=== PATIENT | female | born 1930 | race Caucasian/White ===

== ENCOUNTER 2016-08-30 15:46 | Inpatient (IN) | payer MEDICARE, OTHER ==
[~2016-08-30] VITALS: Ht 177.8 cm; Wt 57.2 kg
[~2016-08-30 15:46] MED LIST: tylenol arthritis PO
[2016-08-30 15:58] VITALS: BP 209/92; PULSE 92; RESP 28; O2SAT 88
[2016-08-30 16:21] VITALS: BP 180/68; PULSE 72; RESP 25; O2SAT 94
--- NOTE | 2016-08-30 16:39 | ED.REPORT ---
HPI-General Illness Date of Service Aug 30, 2016 ED Provider: The patient is an 85 year old female who was brought to the emergency department by EMS from [facility] for = shortness of breath and hoarse low voice. Medics report her O2 sat was in the low 80's. Medics mentioned that there may have been concern for a possible allergic reaction. The patient denies throat tightness, throat swelling, difficulty swallowing, tongue swelling , or rash. History is somewhat difficult to obtain. ED nurse contacted the [facility] who were unable to provide much more information. The patient has not been taking her medications as prescribed. Nursing staff called the patients new PCP, Dr. Dumont who recommended evaluation in the emergency department. Nursing Notes Stated Complaint: MEDICATION REACTION Chief Complaint: General Complaint Nursing Notes Reviewed: Yes Allergies: Coded Allergies: ibuprofen (Verified Allergy, Intermediate, legs swelling, 08/30/16) meloxicam (Verified Allergy, Intermediate, legs swelling, 08/30/16) naproxen sodium (Verified Allergy, Intermediate, legs swelling, 08/30/16) Scheduled Amlodipine (Amlodipine) 2.5 Mg Tablet 2.5 MG PO DAILY Furosemide (Furosemide) 20 Mg Tab 20 MG PO DAILY Scheduled PRN Acetaminophen (Extra Strength Non-Aspirin) 500 Mg Tablet 500 MG PO TID PRN PRN For Pain Tramadol (Tramadol) 50 Mg Tablet 50 MG PO QID PRN PRN For Pain Miscellaneous Medications ([stool]) Aspirin (Aspirin) 325 Mg Tablet 325 MG PO Cholecalciferol (Vitamin D3) (Vitamin D3) 2,000 Unit Capsule 2,000 UNIT PO General Time Seen by MD: 16:38 Chief Complaint Other (medication reaction) Hx Obtained From: Patient, EMS Arrived By: Ambulance Sudden in Onset?: Yes Onset Occurred: 2 days ago Symptom Duration: Since onset Severity: Current: No pain currently Severity: Maximum: No pain Recent Healthcare: No recent doctor visit, No recent hospitalization Similar Sx Previous: No Past Medical History Past Medical History Chronic low back pain Severe hip osteoarthritis Hypertension Past Surgical History Tonsillectomy Hemorrhoidectomy Knee replacement Family History Noncontributory Smoking History Current Every Day Smoker Social History Lives at [facility] Drug Use: Denies drug use Other Social History: Local resident Ambulatory Status Independent Review of Systems +hoarse voice Full Review of Systems Ears / Nose / Throat: Denies: Throat pain, Throat swelling, Tongue pain, Tongue swelling Respiratory: Reports: Shortness of breath GI: Denies: Dysphagia Complete sys rev & neg: except as marked. Physical Exam Vital Signs Vital Signs Date Time Temp Pulse Resp B/P Pulse Ox O2 Delivery O2 Flow Rate FiO2 08/30/16 18:20 79 22 179/80 99 Nasal Cannula 08/30/16 16:21 72 25 180/68 94 Nasal Cannula 2 08/30/16 15:58 36.5 92 28 209/92 88 Room Air Initial VS: Reviewed Head / Eyes: Atraumatic, Normocephalic, PERRL Neck: Supple, Non-tender, Full range of motion Cardiovascular: Regular rate & rhythm, Heart sounds normal, Intact distal pulses Abdomen / GI: Soft, Non-tender, No guarding, No rebound, No distention Lymphatic: No lymphadenopathy Extremities: Vascular intact, Neuro intact, No swelling, No tenderness Neurologic: Alert, Oriented, Nonfocal Psychiatric: Mood/affect normal, Behavior normal, Normal thought content General/Constitutional: Awake, Alert, Cooperative Thin and frail, hoarse voice, no signs of allergic reaction ENT: Atraumatic, Airway patent, Mucous membranes moist, Pharynx NL Respiratory / Chest: Atraumatic, Breath sounds NL, Breath sounds = bilat, No respiratory distress, No rales, No rhonchi, No wheezing, No retractions, No stridor, No chest tenderness, No chest wall deformity Hoarse voice Lower Extremity / Pelvis / MS: Neurologic intact 2+ lower extremity edema, more prominent in the right leg. Skin: Atraumatic, Color NL, No rash, Warm, Dry Interpretation & Diagnostics Lab Results Interpretation Result Diagram: 08/30/16 1615 08/30/16 2210 Test 08/30/16 16:15 White Blood Count 4.7th/mm3 (3.8-10.1) Red Blood Count 4.10mil/mm3 (3.90-5.20) Hemoglobin 11.8g/dL (12.0-15.6) Hematocrit 36.0% (35.0-46.0) Mean Corpuscular Volume 87.8fL (81-100) Mean Corpuscular Hemoglobin 28.8pg (27.0-35.0) Mean Corpuscular Hemoglobin Concent 32.8% (32.0-37.0) Red Cell Distribution Width 16.0% (12.3-15.4) Platelet Count 201bil/L (150-400) Neutrophils (%) (Auto) 58% (40-74) Lymphocytes (%) (Auto) 36% (14-46) Monocytes (%) (Auto) 6% (4-12) Eosinophils (%) (Auto) 0% (0-5) Basophils (%) (Auto) 0% (0-3) Hold Purple Top Tube Received (Received) Hold Blue Top Tube Received (Received) Total Bilirubin 0.4mg/dL (0.0-1.2) Aspartate Amino Transf (AST/SGOT) 17U/L (0-50) Alanine Aminotransferase (ALT/SGPT) 8U/L (0-32) Alkaline Phosphatase 77U/L (25-165) Pro-B-Type Natriuretic Peptide 1638pg/mL (0-738) Total Protein 8.2g/dL (6.4-8.4) Hold Red Top Tube Received (Received) Hold Preston Top Tube Received (Received) ECG Interpretation ECG Interpretation: Sinus rhythm First degree AV block Anterior Q waves which are old Lateral ST depressions which were not present on prior EKG Time: 17:51 Interpreted by: ED physician X-Ray Chest Interpretation Chest Xray Interpretation: IMPRESSION: Acute disease is not seen in the chest. Prominent central pulmonary arteries suggesting hypertension. Dictated by: Jonathan Shukla M.D. on 08/30/2016 at 18:19 Interpretation / Wet Read by: Interpret - Radiologist X-Ray Interpretation Xray Interpretation: IMPRESSION: Acute disease is not appreciated. Cause of hoarseness is not identified. Dictated by: Jonathan Shukla M.D. on 08/30/2016 at 18:20 Study Performed: Soft tissue neck Interpretation / Wet Read by: Interpret - Radiologist Re-Eval/Medical Decision Med Decision/Clinical Course Hypoxia likely related to congestive heart failure. Patient has profound hypokalemia and hypomagnesemia as well which were repleted in the ER. CT chest obtained exclude pulmonary embolism given right greater than left lower extremity edema which was negative for pulmonary embolism or acute pneumonia however concerning for possible lymphoma. This will need further workup either in hospital or as an outpatient. Source of Hx: Old records, EMS Consultation : Referral / Consult Name: Mike Shultz MD Consulted With: Hospitalist Requested Call at: 18:23 Call Returned at: 18:37 Drop Hammer Operator Helper: Will see patient, Agrees with eval, Agrees with plan, Accepts admit Counseled Regarding: Diagnosis, Lab results, Need for admission Discharge & Departure Primary Impression: Hypoxia Additional Impressions: Hypokalemia Lower extremity edema Laterality: bilateral Qualified Code: R60.0 - Localized edema Shortness of breath Disposition: ADMITTED TO HOSPITAL Discharge Condition All VS Reviewed: Yes Condition: Stable Referrals: Torey Dumont MD (PCP) Scribe Attestation Portions of this note were transcribed by Porsha Medina. Dr. Azael Alves personally performed the history, physical exam and medical decision-making; I reviewed and confirmed the accuracy of the information in the transcribed note. Signed by: Gus Delgadillo, 08/30/2016 and 1840. copies to: Torey Dumont MD,Leon Ambriz DO Aug 30, 2016 16:39 Porsha Medina Aug 30, 2016 16:46 Hypoxia Additional Impressions: Hypokalemia Lower extremity edema Laterality: bilateral Qualified Code: R60.0 - Localized edema Shortness of breath Disposition: ADMITTED TO HOSPITAL Discharge Condition All VS Reviewed: Yes Condition: Stable Referrals: Torey Dumont MD (PCP) Scribe Attestation Portions of this note were transcribed by Porsha Medina. Dr. Azael Alves personally performed the history, physical exam and medical decision-making; I reviewed and confirmed the accuracy of the information in the transcribed note. Signed by: Gus Delgadillo, 08/30/2016 and 1840. copies to: Torey Dumont MD,Leon S Aug 30, 2016 16:39 Porsha Medina Aug 30, 2016 16:46
[2016-08-30 17:07] LABS: Mean Corpuscular Hemoglobin 28.8 pg (27.0-35.0); Mean Corpuscular Volume 87.8 fL (81-100); Platelet Count 201 bil/L (150-400)
[2016-08-30 17:23] LABS: Magnesium 1.4 mg/dL (1.6-2.6)
[2016-08-30 17:28] LABS: BASOPHILS % (AUTO) 0 % (0-3); EOSINOPHILS % (AUTO) 0 % (0-5); MONOCYTES % (AUTO) 6 % (4-12); NEUTROPHILS % (AUTO) 58 % (40-74)
[2016-08-30] MEDS ORDERED: Potassium Chloride 20 mEq SR Tablet PO ONE (17:45)
[2016-08-30] MEDS ORDERED: KCl 40 mEq/D5W 500 mL 40 MEQ in IV Premix 1 EACH IV ONE (17:45)
[2016-08-30] MEDS ORDERED: Magnesium Sulf 4 Gm/100 mL H2O 4 GM in IV Premix 1 EACH IV ONE (17:45)
[2016-08-30 18:20] VITALS: BP 179/80; PULSE 79; RESP 22; O2SAT 99
--- NOTE | 2016-08-30 18:20 | DRSVH ---
PROCEDURE: X-RAY CHEST, TWO VIEWS ([id number]) INDICATIONS: hoarse voice TECHNIQUE: 2 views of the chest were acquired. COMPARISON: None. FINDINGS: Surgical changes and devices: None. Lungs and pleura: No pleural effusions or pneumothorax. Lungs are clear. Pulmonary arteries are pro minent centrally suggesting pulmonary artery hypertension. Mediastinum: Mediastinal contours are normal. Heart size is normal. Aorta is normal. Bones and chest wall: No suspicious bony abnormalities. Soft tissues appear unremarkable. IMPRESSION: Acute disease is not seen in the chest. Prominent central pulmonary arteries suggesting hypertension. Dictated by: Joanthan Shukla M.D. on 08/30/2016 at 18:19 Approved by: Jonathan Shukla M.D. on 08/30/2016 at 18:20
--- NOTE | 2016-08-30 18:22 | DRSVH ---
PROCEDURE: X-RAY NECK SOFT TISSUE ([id number]) INDICATIONS: hoarse voice TECHNIQUE: 2 views of the neck were acquired. COMPARISON: None. FINDINGS: Airway: The airway appears patent. Soft tissues: Prevertebral soft tissues are normal in thickness. The epiglottis and aryepiglottic f olds appear normal. No soft tissue gas. Bones: No suspicious bony lesions. Visualized cervical spine is normally aligned. IMPRESSION: Acute disease is not appreciated. Cause of hoarseness is not identified. Dictated by: Jonathan Shukla M.D. on 08/30/2016 at 18:20 Approved by: Jonathan Shukla M.D. on 08/30/2016 at 18:21
--- NOTE | 2016-08-30 18:44 | DRSVH ---
PROCEDURE: CT ANGIO CHEST PULMONARY EMBOLISM ([id number]) INDICATIONS: dyspnea, hypoxia TECHNIQUE: After the administration of intravenous contrast, 2 mm thick sections acquired from the pulmonary api dev to the posterior costophrenic angles. 3-dimensional maximum intensity projection (MIP) coronal a nd sagittal reformats were then acquired through the thorax. For radiation dose reduction, the follo wing was used: automated exposure control, adjustment of mA and/or kV according to patient size. COMPARISON: None. FINDINGS: Image quality: Excellent. Pulmonary arteries: Pulmonary arteries are normal in size, and demonstrate no intraluminal filling d efects to suggest central pulmonary embolism. Lungs and pleura: Lungs are clear of acute infiltrates.. No pleural effusions or pneumothorax. Lolita tral and peripheral airways are patent. Mediastinum: Heart size is normal, without pericardial effusion. There is prominent mediastinal and hilar adenopathy. This extends from the pretracheal retrocaval space and subcarinal area with axilla ry adenopathy on the left as well. Thoracic aorta is normal in caliber and enhancement. Esophagus is normal in caliber, without hiatal hernia. Bones and chest wall: There are no wedging deformities of lower thoracic vertebrae thought to be a fu nction of osteoporosis. Ribs and thoracic spine appear intact throughout. Thyroid gland is grossly n ormal.. No axillary or supraclavicular adenopathy. Abdomen: Liver and spleen are prominent in size for an 85 year-old and there is some para-aortic khris opathy in the lowest cuts in the upper abdomen.. IMPRESSION: 1. Emphysematous changes are present in the lungs. No evidence for pulmonary embolus or acute pneumon ia. 2. Prominent adenopathy throughout the mediastinum and prominence of the liver and spleen and probabl e para-aortic adenopathy and the margins of the study as well consistent with lymphoma as the most li michael cause. Dictated by: Jonathan Shukla M.D. on 08/30/2016 at 18:43 on 08/30/2016 at 18:33 is aware of the findings Approved by: Jonathan Shukla M.D. on 08/30/2016 at 18:43
[2016-08-30] MEDS ORDERED: Ondansetron 2 mg/mL 2 mL Inj IVPUSH PRN (18:50)
[2016-08-30] MEDS ORDERED: Alum-Mag Hydrox-Simeth 30 mL Suspension PO PRN (18:50)
[2016-08-30] MEDS ORDERED: Potassium Chloride 20 mEq/15 mL 15mL Oral Soln PO ONE (19:20)
[2016-08-30 19:34] VITALS: BP 187/97; PULSE 80; RESP 20; O2SAT 100
[2016-08-30 20:06] VITALS: BP 201/108; PULSE 86; RESP 20; O2SAT 97
--- NOTE | 2016-08-30 20:31 | NUR ---
Admit Note Pt. arrived on floor at 1954. Pt. was on 2 liters of oxygen via nasal cannula. Pt. has left peripheral IV that is patent and intact. BPs high. Lexii OSORIO aware. Pt. is alert and oriented x3. Pt. was oriented to room. Pt. is hard of hearing. Mcgregor alarm in place. Oriented to room and tv. Will continue to monitor.
--- NOTE | 2016-08-30 20:42 | PCM.HPMED ---
Subjective Date of Service Aug 30, 2016 Primary Provider: Admitting Physician: Mike Shultz MD Primary Care Physician: Torey Dumont MD Attending Physician: Mike Shultz MD Chief Complaint: Short of breath HISTORY was OBTAINED FROM PATIENT / MEDITECH NOTES History of present illness 85-year-old female, from [facility] assisted living, due to shortness of breath, EMS reported O2 saturation 80%. associated hoarse voice--doesn't appear acute, and associated pill dysphagia x months. non- productive cough noted during exam. Assisted living was suspecting side effect of amlodipine vs an allergic reaction, but she has been taking amlodipine for at least several weeks per PcP notes jul and aug 2016. She hasnt noticed the right greater than left leg edema, she has noticed months of neuropathic pain when she puts pressure on feet. wt loss was documented on PCP notes 08/21/2016 w/ labs/TSH drawn at that time. She last smoked 2 days ago. She denies forgetfulness. Pt is slow to respond, appears to answer some questions accurately. In the ER respiratory rate 28, 209/92, 88% on room air, 2 L nasal cannula started, afebrile pulse 70-90, low potassium/magnesium. Patient is a poor historian per ER doc. In the egan, off O2, speaking slowly in full sentences. Review of Systems - none of the following - F/C/sick contact / cp / acid reflux / n/v/diarrhea / bleeding/bruising / / change in voiding / yeast infections / rash ambulates w/ walker at baseline FAMILY HX no cancer/no lymphoma SOCIAL HX history of EtOH 2-3 per day, <5 cigarettes per day MEDICATIONS Aspirin amlodipine lasix 20 tramadol Past Medical/Surgical HX Osteoarthritis/low back pain/left knee replacement/total hip arthroplasty right No diabetes no prior CHF history No prior cancer Hypertension Tonsillectomy/hemorrhoidectomy all teeth pulled 6 months ago, dentures / dysphagia tinea peripheral polyneuropathy Allergies Coded Allergies: ibuprofen (Verified Allergy, Intermediate, legs swelling, 08/30/16) meloxicam (Verified Allergy, Intermediate, legs swelling, 08/30/16) naproxen sodium (Verified Allergy, Intermediate, legs swelling, 08/30/16) PMH Social History Hx Alcohol Use: Yes Hx Substance Use: No Smoking Status: Current Every Day Smoker Exam Vital Signs Vital Sign - Last Date Time Temp Pulse Resp B/P Pulse Ox O2 Delivery O2 Flow Rate FiO2 08/30/16 20:06 36.6 86 20 201/108 97 Nasal Cannula 2.00 Lab and Diagnostics Labs Exam on admission on RA NAD alert, pleasant mood affect WNL, hoarse voice NC/AT no icterus no injected eyes EOMI PERRL /no pharyngeal lesions/ no oral lesions / hearing intact / adentulous Supple neck CTAB equal chest rise / no accessory muscle use / speaks in full sentences / no rrw RRR S1 S2 / no mrg / 2+ radial pulses Soft nt nd + BS no hepatosplenomegaly No edema no cyanosis no ecchymosis of lower extremities No rash / no jaundice RIVAS symmetrical facies sits up by herself EKG 80s sinus rhythm, PAC QTC 493, Q waves in right leads, ST depressions in lateral leads are not significant Trop 0.01 at 4 PM BNP 1638 LFT low albumin Magnesium 1.4 Potassium 2.6 Calcium 11.1 Imaging PROCEDURE: CT ANGIO CHEST PULMONARY EMBOLISM ([id number]) INDICATIONS: dyspnea, hypoxia TECHNIQUE: After the administration of intravenous contrast, 2 mm thick sections acquired from the pulmonary apices to the posterior costophrenic angles. 3-dimensional maximum intensity projection (MIP) coronal and sagittal reformats were then acquired through the thorax. For radiation dose reduction, the following was used: automated exposure control, adjustment of mA and/or kV according to patient size. COMPARISON: None. FINDINGS: Image quality: Excellent. Pulmonary arteries: Pulmonary arteries are normal in size, and demonstrate no intraluminal filling defects to suggest central pulmonary embolism. Lungs and pleura: Lungs are clear of acute infiltrates.. No pleural effusions or pneumothorax. Central and peripheral airways are patent. Mediastinum: Heart size is normal, without pericardial effusion. There is prominent mediastinal and hilar adenopathy. This extends from the pretracheal retrocaval space and subcarinal area with axillary adenopathy on the left as well. Thoracic aorta is normal in caliber and enhancement. Esophagus is normal in caliber, without hiatal hernia. Bones and chest wall: There are no wedging deformities of lower thoracic vertebrae thought to be a function of osteoporosis. Ribs and thoracic spine appear intact throughout. Thyroid gland is grossly normal.. No axillary or supraclavicular adenopathy. Abdomen: Liver and spleen are prominent in size for an 85 year-old and there is some para-aortic adenopathy in the lowest cuts in the upper abdomen.. IMPRESSION: 1. Emphysematous changes are present in the lungs. No evidence for pulmonary embolus or acute pneumonia. 2. Prominent adenopathy throughout the mediastinum and prominence of the liver and spleen and probable para-aortic adenopathy and the margins of the study as well consistent with lymphoma as the most likely cause. PROCEDURE: X-RAY NECK SOFT TISSUE ([id number]) INDICATIONS: hoarse voice TECHNIQUE: 2 views of the neck were acquired. COMPARISON: None. FINDINGS: Airway: The airway appears patent. Soft tissues: Prevertebral soft tissues are normal in thickness. The epiglottis and aryepiglottic folds appear normal. No soft tissue gas. Bones: No suspicious bony lesions. Visualized cervical spine is normally aligned. IMPRESSION: Acute disease is not appreciated. Cause of hoarseness is not identified. PROCEDURE: X-RAY CHEST, TWO VIEWS ([id number]) INDICATIONS: hoarse voice TECHNIQUE: 2 views of the chest were acquired. COMPARISON: None. FINDINGS: Surgical changes and devices: None. Lungs and pleura: No pleural effusions or pneumothorax. Lungs are clear. Pulmonary arteries are prominent centrally suggesting pulmonary artery hypertension. Mediastinum: Mediastinal contours are normal. Heart size is normal. Aorta is normal. Bones and chest wall: No suspicious bony abnormalities. Soft tissues appear unremarkable. IMPRESSION: Acute disease is not seen in the chest. Prominent central pulmonary arteries suggesting hypertension. 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 --resolved --contributory emphysema --start ipratropium BID R >L leg edema --pending right leg venous u/s --dc amlodipine --lovenox start now --consider echo w/ elevated BNP Hypertensive -- trial Enalapril, dc amlodipine - leg edema, resume lasix when potassium and magnesium are normal -- serial trop Hypo-kalemia/low magnesium likely due to lasix --Q6 hr check/ --replete k andMag New radiographic lymphoma diagnosis / elevated calcium / normocytic anemia --consult oncology in the morning --spep/upep/pth pending --pending TSH Dysphagia, likely contributory thoracic lymphadenopathy --swallow eval pending Chronic issues known prior to admission, 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 I left message for family.[phone]. POA niece Archana Rothman - asked her to call back since I did not discuss lymphoma diagnosis but indicated swallowing evaluation and breathing comfortably now. Mike Shultz MD Aug 30, 2016 20:42
[2016-08-30 22:06] LABS: APPEARANCE,URINE CLEAR (CLEAR,HAZY); COLOR,URINE YELLOW (YELLOW); OCCULT BLOOD,URINE NEGATIVE (NEGATIVE); UROBILINOGEN,URINE NORMAL (NORMAL)
[2016-08-30] MEDS ORDERED: Acetaminophen 32.5 mg/mL 20 mL Liquid PO PRN (23:00)
--- NOTE | 2016-08-30 23:12 | NUR ---
paged about abnormal heart rhythm pest control chemical technician notified RN about a 6 second pause. Lexii OSORIO paged and made aware. Pt. is asymptomatic. Will continue to monitor.
[2016-08-30 23:36] LABS: TROPONIN T 0.01 ug/L (0.0-0.011)
[2016-08-30] MEDS ORDERED: ACET-2561 PO (23:47)
[2016-08-30] MEDS ORDERED: AMLO2.5T PO (23:47)
[2016-08-30] MEDS ORDERED: stool (23:47)
[2016-08-30] MEDS ORDERED: TRAM50TA2 PO (23:47)
[2016-08-30] MEDS ORDERED: ASPI325T32 PO (23:47)
[2016-08-30] MEDS ORDERED: CHOL200047 PO (23:47)
[2016-08-30] MEDS ORDERED: FUR20 PO (23:47)
[2016-08-30] MEDS: Senna-Docusate 8.6-50 mg Tablet PO SCH (23:54)
[2016-08-31] VITALS (12 sets, daily range): BP systolic 115–190; BP diastolic 62–93; PULSE 63–89; RESP 16–24; O2SAT 92–97
[2016-08-31] MEDS ORDERED: Potassium Chloride Inj 20 MEQ in Dextrose 5% 250 ML IV ONE ×2 (00:40→14:15)
[2016-08-31] MEDS ORDERED: Ipratropium 0.02% 0.5 mg/2.5 mL Inhalation Solution NEB SCH (02:30)
[2016-08-31 07:01] LABS: Mean Corpuscular Hemoglobin 28.2 pg (27.0-35.0); Mean Corpuscular Volume 87.8 fL (81-100)
[2016-08-31 07:48] LABS: Magnesium 2.3 mg/dL (1.6-2.6); TROPONIN T < 0.010 ug/L (0.0-0.011)
[2016-08-31] MEDS: Ipratropium 0.02% 0.5 mg/2.5 mL Inhalation Solution NEB SCH ×2 (08:30→20:30)
--- NOTE | 2016-08-31 09:12 | DRSVH ---
PROCEDURE: US VEINOUS LEG DUPLEX UNILATERAL, RIGHT INDICATIONS: edema right more than left leg TECHNIQUE: Real-time imaging, as well as color and pulse Doppler interrogation, were performed of the lower extr emity deep veins from the inguinal ligament to the popliteal fossa. COMPARISON: [facility], CT, CT ANGIO CHEST PE, 08/30/2016, 18:03. FINDINGS: The deep veins are normally compressible, and free of intraluminal thrombus. Color and pu lse Doppler demonstrate normal phasic intraluminal flow. There is normal augmentation response to di stal compression maneuver. Multiple abnormal appearing enlarged lymph nodes. IMPRESSION: 1. No deep venous thrombosis identified within the right lower extremity. 2. Multiple enlarged lymph nodes are present, several which are atypical in appearance largest measur ing roughly 2.5 cm in short axis. Underlying neoplastic process is suspected. Recommend clinical co rrelation and management. Dictated by: Rojas VIGILA Interpreted: Neelam Ruggiero MD on 08/31/2016 at 9:10 Transcribed by: JULIENNE on 08/31/2016 at 9:12 Approved by: Neelam Ruggiero M.D. on 08/31/2016 at 16:20
--- NOTE | 2016-08-31 14:38 | PCM.PNMED ---
Subjective Date of Service Aug 31, 2016 Subjective Follow-up for hypoxia, unilateral lower extremity edema. Patient seen and examined at bedside. Medical record reviewed. After discussed with nursing staff Patient had one episodes of bradycardia today with heart rate around 29, and a 2 second pause. Patient has no chest pain, no lightheadedness, no dizziness, no syncope Exam Vital Signs Vital Sign - Last Date Time Temp Pulse Resp B/P Pulse Ox O2 Delivery O2 Flow Rate FiO2 08/31/16 13:43 36.7 86 18 164/73 93 Nasal Cannula 2.00 Intake and Output 08/30/16 08/30/16 08/31/16 Cumulative From/Thru 15:00 23:00 07:00 08/30/16 15:58 - 08/31/16 06:26 Intake Total 500 ml 833 ml 1333 ml Output Total 1050 ml 1050 ml Balance 500 ml -217 ml 283 ml Intake Oral 250 ml 250 ml IV Total 500 ml 583 ml 1083 ml Output Urine Total 1050 ml 1050 ml # Bowel Movements 0 0 Exam Clinical information but comfortably. HEENT: Sclerae anicteric Chest/ Lung: normal respiratory effort, no crackles no wheezing. Decreased air entry bilaterally Heart: S1-S2 irregular rate and rhythm. Abdomen: Soft non tender, non distended, Audible and normal bowel sounds are quadrants Extremities : 1+ edema left lower extremity 3+ edema right lower extremity Skin: No rashes, no ulcers Neuro : Grossly non focal IVs and Medications Medications Reviewed: Medications were reviewed in detail Lab and Diagnostics Result Diagram: 08/31/1660408/31/16604 Assessment & Plan Active issues and reason for admission 1. Hypoxemia : Due to underlying respiratory emphysema. 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 2 .- Lymphoma ? Degenerative finding of intestinal lymphadenopathy and abdominal lymphadenopathy compatible with possible lymphoma. Oncologic consulted 3 . Unilateral lower extremity edema R LE edema : Ultrasounds show no DVT but Multiple enlarged lymph nodes are present, several which are atypical in appearance largest measuring roughly 2.5 cm in short axis 4. Hypertensive : Amlodipine may resume for hypertension. Her lower extremity demise not pre-tibial edema secondary to calcium jefe Discontinue Lasix. Hypo-kalemia/low magnesium likely due to lasix --Q6 hr check/ --replete k andMag 5. Dysphagia, likely contributory thoracic lymphadenopathy --swallow eval pending. 6. Bradycardia : Telemetry monitoring showed one episode of pericardial 29 a 2 seconds pause. Obtain 12-lead echocardiogram. 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 Speech and swallow evaluation pending DVT prophylaxis lovenox Code DNR Clinically and hemodynamically stable. Shortness of breath improved on oxygen. Multiple mediastinal and abdominal lymphadenopathy compatible with possible lymphoma. Monitoring renal function and electrolytes closely. Repeat CBC and BMP in a.m. VTE Mechanical Devices: Intermittant Pneumatic CD Time spent 35 minutes Brayan Hoff MD Aug 31, 2016 14:38
--- NOTE | 2016-08-31 15:06 | NUR ---
Evaluation completed. Please go to "Notes" then click on "Assessments and Notes" (bottom left corner of screen). Then select appropriate discipline tab on top of screen.
--- NOTE | 2016-08-31 16:59 | DRSVH ---
[facility] [address] [place] [address] Echocardiogram Report Name: SE HOLLEY LStudy Date: 08/31/2016 Height: 70 in Hospital Exam Location: [facility] Weight: 131 lb Gender: Female BSA: 1.7 m2 : 1930 Age: 85 yrs BP: 162/82 mmHg Reason For Study: SHORTNESS OF BREATH Ordering Physician: HOSPITALIST [facility] Performed By: Ananda Hernandez Referring Physician: Oscar Dumont Interpretation Summary The left ventricle is normal in size. The ejection fraction is estimated to be 65-70%. The right ventricle is normal in size and function. There is mild to moderate mitral regurgitation. There is mild to moderate tricuspid regurgitation. The ascending aorta is mildly enlarged. Procedure: A two-dimensional transthoracic echocardiogram with color flow and Doppler was performed. The study quality was technically adequate. There is no prior echocardiogram noted for this patient. The patient was in normal sinus rhythm during the exam. The patient had frequent PACs during the exam. Left Ventricle: The left ventricle is normal in size. Proximal septal thickening is noted. No significant LVOT obstruction. There is no thrombus. The ejection fraction is estimated to be 65-70%. There are no focal wall motion abnormalities. Spectral Doppler of the mitral valve is reversed, with an E/A wave ratio < 1.0. Right Ventricle: The right ventricle is normal in size and function. Atria: The left atrium is moderately dilated. Right atrial size is normal. A prominent eustachian valve is noted. The interatrial septum is intact with no evidence for an atrial septal defect. Mitral Valve: There is mild mitral annular calcification. There is systolic anterior motion of the chordal apparatus. The mitral valve chordae are thickened and/or calcified. There is mild to moderate mitral regurgitation. Aortic Valve: The aortic valve is trileaflet. The aortic valve opens well. There is mild aortic valve sclerosis. There is no aortic valve stenosis. There is trace aortic regurgitation. Tricuspid Valve: The tricuspid valve is normal in structure and function. There is mild to moderate tricuspid regurgitation. Pulmonary artery pressures cannot be estimated because of the lack of a measurable TR jet velocity. Pulmonic Valve: The pulmonic valve is normal in structure and function. There is trace pulmonic regurgitation. Great Vessels: The aortic root is normal size. There is aortic root sclerosis/calcification. The ascending aorta is mildly enlarged. The pulmonary artery is normal size. The IVC is of normal diameter and collapses greater than 50% with a sniff. This suggests a low right atrial pressure of 3 mm Hg. Pericardium/ Pleura There is no pericardial effusion. There is no pleural effusion. MMode/2D Measurements & Calculations LVIDd: 4.1 cm LA dimension: 3.8 cm RA long axis LVOT diam LVIDs: 2.4 cm FS: 41.5 % LA A2 area: 21.0 cm RA area Ao root diam EPSS: 0.23 cm LA A4 area: 22.1 cm IVSd: 0.95 cm LA length (vol): 5.2 cm : 16.0 cm Aortic Jxn LVPWd: 0.75 cm LA vol: 75.2 ml RA vol: 46.2 ml LA vol index RA asc Aorta : 26.5 mm2 Diam: 3.6 cm IVC diam: 1.6 cm LV olsen. diameter/BSA LV sys. diameter/BSA RVD2 (mid) (cm/m^2): 2.4 (cm/m^2): 1.4 : 3.3 cm Doppler Measurements & Calculations Ao V2 max MV E max cheko MV E/A: 0.61 PA V2 max : 158.7 cm/sec : 70.1 cm/sec Pulm A Revs : 92.8 cm/sec Ao max P.1 mmHg MV A max cheko Dur: 0.17 sec PA mean PG Ao mean P.5 mmHg : 114.5 cm/sec MV A dur LVOT Max Cheko : 0.16 sec PA Accel Time : 149.0 cm/sec : 0.13 sec RICHARD(I,D): 3.4 cm sev ratio: 0.90 MV dec time: 0.12 sec Ao V2 mean LV V1 max PG PA V2 mean : 124.0 cm/sec : 74.7 cm/sec Ao V2 VTI: 33.8 cm LV V1 VTI PA pr(Accel) RICHARD(V,D): 3.5 cm2 : 30.5 cm : 19.1 mmHg RICHARD indexed to BSA Pulm A Revs Dur - MV A (cm^2/m^2): 2.0 Dur: 0.01 msec Reading Physician:TARA
--- NOTE | 2016-08-31 17:57 | NUR ---
Tele Patient continues to have abnormal tele readings. MD made aware. mine technician called informing of runs of bradycardia and SR pauses, both which resolved spontaneously. Patient asymptomatic during abnormal rate/rhythm episodes. ECG taken, MD made aware of results. Care is ongoing. Addendum: 08/31/16 at 1917 by TOMAS MISTRY RN Vasotec / Blood Pressure Orders to discontinue Vasotec if patient has cough. Patient developed cough, discussed with MD to hold morning dose, discontinue medication. PRN blood pressure medication administered. Care is ongoing.
[2016-08-31] MEDS: hydrALAZINE 20 mg/mL Inj IV PRN (18:47)
[2016-08-31] MEDS: Senna-Docusate 8.6-50 mg Tablet PO SCH (20:20)
[2016-09-01] VITALS (10 sets, daily range): BP systolic 169–192; BP diastolic 83–97; PULSE 74–93; RESP 16–20; O2SAT 91–95
[2016-09-01] MEDS: hydrALAZINE 20 mg/mL Inj IV PRN ×3 (01:17→18:51)
[2016-09-01 04:08] LABS: Vitamin D, 25-Hydroxy 52.8 ng/mL (30.0-100.0)
--- NOTE | 2016-09-01 04:18 | NUR ---
Blood pressure PLAYER DEVELOPMENT EXECUTIVE alerted this RN that pt's midnight BP was high. IVP hydralazine administered. Will continue to monitor.
[2016-09-01] MEDS ORDERED: Potassium Chloride Inj 20 MEQ in Dextrose 5% 250 ML IV ONE (10:30)
--- NOTE | 2016-09-01 11:28 | PCM.DIMED ---
Discharge Instructions Date of Service Sep 01, 2016 Dates of Hospitalization Aug 30, 2016 at 18:48 Discharge Diagnosis Discharge Diagnosis Left LE swelling , Lymphoma, Bradycardia, Heart Block, Hypertension , Dysphagia , Hypokalemia Diet Low fat, Low Sodium, Other (Dysphagia diet ) Patient Instructions Follow-up with PCP in: 1 week (Primary Care doctor ) Brayan Hoff MD Sep 01, 2016 11:28
[2016-09-01] MEDS ORDERED: METO25TA6 PO (11:31)
[2016-09-01] MEDS ORDERED: POTA10CA42 PO (11:31)
--- NOTE | 2016-09-01 12:23 | NUR ---
Social Work Note - Initial Assessment Milagros Palm is a 85 yr old admitted for hypoxia. EMR reviewed: Pt had medicare and [employer]. Her PCP is Dr Dumont. Readmit score is 1. DPOA paperwork in chart. See attached CM initial assessment. ESCROW ASSISTANT met with pt - introduced d/c planning and explained SW role. Pt lives at [facility] where she uses a walker at baseline and manages her own medications. Pt states she is feeling weak - has not been out of bed. MD identifies that she is medically stable - but is waiting for PT evaluation and pt may require SNF before returning to her assisted living. ESCROW ASSISTANT spoke with Rosamaria Basil at [facility] who agrees that pt will need to be fairly independent to be able to return. ESCROW ASSISTANT discussed with MD who will await PT recommendations. Pt states she is willing to go to SNF at [facility] if insurance will pay for it. ESCROW ASSISTANT started referral to SNF - Provided access, paperwork on chart, PASSR faxed. Plan: Referral to [facility] started vs return to [facility] Assisted living when medically stable. SHARITA Marroquin Addendum: 09/01/16 at 1228 by FLORENCE TRAVIS SS Amended: Links added.
--- NOTE | 2016-09-01 12:41 | PCM.PNMED ---
Subjective Date of Service Sep 01, 2016 Subjective Follow-up for hypoxemia, lower extremity edema. Patient seen and examined at bedside. No significant interval development, no new complaints. Telemetry monitoring reported episodes of bradycardia and pauses. Patient has no chest pain, no shortness of breath, no dizziness, no lightheadedness. She does not want any intervention or further workup regarding her bradycardia and AV block. Exam Vital Signs Vital Sign - Last Date Time Temp Pulse Resp B/P Pulse Ox O2 Delivery O2 Flow Rate FiO2 09/01/16 10:00 84 09/01/16 08:40 37.4 20 179/91 95 Nasal Cannula 2.00 Intake and Output 08/31/16 08/31/16 09/01/16 Cumulative From/Thru 14:59 22:59 06:59 08/30/16 15:58 - 09/01/16 05:41 Intake Total 320 ml 100 ml 1753 ml Output Total 650 ml 1100 ml 2800 ml Balance -330 ml -1000 ml -1047 ml Intake Oral 320 ml 100 ml 670 ml IV Total 1083 ml Output Urine Total 650 ml 1100 ml 2800 ml # Voids 1 1 # Bowel Movements 1 1 Exam General : Further elderly female . No acute distress HEENT: On oxygen via nasal canula , Sclerae anicteric Neck: Supple, no cervical lymphadenopathy Chest : normal respiratory effort. No chest wall tenderness Lung: no crackles no wheezing. Decreased air entry bilaterally Heart: S1-S2 irregular rate and rhythm. Abdomen: Benign Extremities : 1+ edema left lower extremity 3+ edema right lower extremity Skin: No rashes, no ulcers Neuro : AAO x 3 . Grossly non focal IVs and Medications Medications Reviewed: Medications were reviewed in detail Lab and Diagnostics Result Diagram: 08/31/16 0605 09/01/16 0855 Assessment & Plan Active issues and reason for admission 1. Hypoxemia : Due to underlying respiratory emphysema. 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 Patient declined any aggressive approach such as chemotherapy or biopsy. She stated she has lived enough to want to go peacefully. 3 . Unilateral lower extremity edema R LE edema : Ultrasounds show no DVT but Multiple enlarged lymph nodes are present, several which are atypical in appearance largest measuring roughly 2.5 cm in short axis. 4. Bradycardia/ AV block : Patient declined cardiology consult and does not want any pacemaker. She stated she preferred to let nature take its course. I spoke to her niece and POA who stated as per patient wishes no chemotherapy, no radiation, surgery. 5. Hypo-kalemia/low magnesium : Replace as needed *Potassium 10 mEq orally daily 6. Dysphagia: Continue dysphagia diet 7. Hypertension: Start metoprolol 25 mg twice a day. 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 Shortness of breath improved on oxygen. Multiple mediastinal and abdominal lymphadenopathy compatible with possible lymphoma. Patient does not want any intervention. Physical therapy evaluation. Discharge back to long-term anticipated within 24-48 hours VTE Mechanical Devices: Intermittant Pneumatic CD Time spent 25 minutes Brayan Hoff MD Sep 01, 2016 12:41
[2016-09-01] MEDS: Ipratropium 0.02% 0.5 mg/2.5 mL Inhalation Solution NEB SCH ×2 (12:50→20:00)
--- NOTE | 2016-09-01 14:04 | NUR ---
Evaluation completed. Please go to "Notes" then click on "Assessments and Notes" (bottom left corner of screen). Then select appropriate discipline tab on top of screen.
--- NOTE | 2016-09-01 14:33 | NUR ---
Social work Note - continued d./c plan AERONAUTICAL RESEARCH ENGINEER received call from [facility] [place] that they are able to accept pt to SNF for rehab. Plan: To [facility] when medically stable - Transport by cabulance. SHARITA Hightower
--- NOTE | 2016-09-01 18:30 | NUR ---
Tele Calls received from [employer] regarding complete heart block, pauses. Hospitalist and charge nurse aware. Patient asymptomatic during episodes. Hospitalist discussed findings with patient, orders from doctor received to remove patient from tele. Care is ongoing. Addendum: 09/01/16 at 1925 by TOMAS MISTRY RN Blood Pressure Blood pressure elevated, patient given PRN anti-hypertensive medication. Care is ongoing.
[2016-09-01] MEDS: Senna-Docusate 8.6-50 mg Tablet PO SCH (20:16)
[2016-09-02 01:24] VITALS: BP 184/79; PULSE 70; RESP 18; O2SAT 93
[2016-09-02 04:35] VITALS: BP 179/79; PULSE 70; RESP 18; O2SAT 94
[2016-09-02] MEDS: hydrALAZINE 20 mg/mL Inj IV PRN (04:56)
--- NOTE | 2016-09-02 05:35 | NUR ---
Blood pressure Patient's BP remains high this shift. Last BP 179/79. Hydralazine 5mg given q6 for systolic over 150. Patient attempts to get out of bed to use the bedside commode without assistance. Patient somewhat stable on feet with FWW, but needs standby. Patient was asked to please use call light when attempting to get up.
[2016-09-02] MEDS: Ipratropium 0.02% 0.5 mg/2.5 mL Inhalation Solution NEB SCH (08:30)
--- NOTE | 2016-09-02 09:30 | PCM.PNMED ---
Subjective Date of Service Sep 02, 2016 Subjective Follow-up for hypoxemia, lower extremity edema, weakness. Patient seen and examined at bedside. No significant overnight event. She has no new complaints Exam Vital Signs Vital Sign - Last Date Time Temp Pulse Resp B/P Pulse Ox O2 Delivery O2 Flow Rate FiO2 09/02/16 04:35 37.0 70 18 179/79 94 Nasal Cannula 2.00 Intake and Output 09/01/16 09/01/16 09/02/16 Cumulative From/Thru 15:00 23:00 07:00 08/30/16 15:58 - 09/02/16 05:48 Intake Total 320 ml 100 ml 2173 ml Output Total 750 ml 400 ml 3950 ml Balance -430 ml -300 ml -1777 ml Intake Oral 320 ml 100 ml 1090 ml IV Total 1083 ml Output Urine Total 750 ml 400 ml 3950 ml # Voids 1 # Bowel Movements 0 1 Exam General: Frail cachectic female, very pleasant, sitting in chair comfortably. NAD Neck : Supple, no JVD Chest: Normal respiratory effort Lung: No crackle, no wheezing Heart : S1, S2 regular rate and rhythm. No gallop Abdomen: Bowel sound normal quadrant. Non tender, non distended Extremity: Right ankle is edematous with moderate edema. Left lower extremity : no edema, no cyanosis Neuro : Grossly non focal. IVs and Medications Medications Reviewed: Medications were reviewed in detail Lab and Diagnostics Result Diagram: 08/31/16 0605 09/02/16 0820 X-Rays, CTs and MRIs Venous ultrasound reviewed : IMPRESSION: 1. No deep venous thrombosis identified within the right lower extremity. 2. Multiple enlarged lymph nodes are present, several which are atypical in appearance largest measuring roughly 2.5 cm in short axis. Underlying neoplastic process is suspected. Recommend clinical correlation and management. CT angiogram reviewed: \ 1. Emphysematous changes are present in the lungs. No evidence for pulmonary embolus or acute pneumonia. 2. Prominent adenopathy throughout the mediastinum and prominence of the liver and spleen and probable para-aortic adenopathy and the margins of the study as well consistent with lymphoma as the most likely cause. Assessment & Plan Active issues and reason for admission 1. Hypoxemia : Due to underlying respiratory emphysema. 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 Patient is currently in a [place] 2 .- Lymphoma : CT scan of the abdomen shows intestinal lymphadenopathy and abdominal lymphadenopathy compatible with possible lymphoma. Patient declined any aggressive approach such as chemotherapy or biopsy. She stated she has lived enough to want to go peacefully if that is the case. 3 . Unilateral lower extremity edema R LE edema : Ultrasounds show no DVT but Multiple enlarged lymph nodes are present, several which are atypical in appearance largest measuring roughly 2.5 cm in short axis. 4. Bradycardia/ AV block : Patient declined cardiology consult and does not want any pacemaker. She stated she preferred to let nature take its course. I spoke to her niece and POA who stated as per patient wishes no chemotherapy, no radiation, surgery, no invasive procedures 5. Hypo-kalemia/low magnesium : Replace as needed *Potassium 10 mEq orally daily 6. Dysphagia: Continue dysphagia diet 7. Hypertension: Start metoprolol 25 mg twice a day. 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 Seen by physical therapy who recommended inpatient rehabilitation. Patient is currently living at an assisted living facility. Discharge to short-term rehabilitation on signs but is made VTE Mechanical Devices: Intermittant Pneumatic CD Time spent 25 minutes Brayan Hoff MD Sep 02, 2016 09:30
[2016-09-02] MEDS ORDERED: Potassium Chloride Inj 20 MEQ in Dextrose 5% 250 ML IV ONE (12:05)
[2016-09-02 12:09] VITALS: BP 163/87; PULSE 71; RESP 22; O2SAT 90
--- NOTE | 2016-09-02 12:20 | PCM.DC.MED ---
Discharge Summary Date of Service Sep 02, 2016 Dates of Hospitalization Date of Hospital Admission Aug 30, 2016 at 18:48 Date of Discharge: Sep 02, 2016 Providers: Admitting Physician: Mike Shultz MD Primary Care Physician: Torey Dumont MD Attending Physician: Mike Shultz MD Diagnosis at Time of Discharge Diagnosis at Time of Discharge Left LE swelling , Lymphoma, Bradycardia, Heart Block, Hypertension , Dysphagia , Hypokalemia Consultations Physical therapy Procedures XRay, CTs & MRIs Venous ultrasound reviewed : IMPRESSION: 1. No deep venous thrombosis identified within the right lower extremity. 2. Multiple enlarged lymph nodes are present, several which are atypical in appearance largest measuring roughly 2.5 cm in short axis. Underlying neoplastic process is suspected. Recommend clinical correlation and management. CT angiogram reviewed: \ 1. Emphysematous changes are present in the lungs. No evidence for pulmonary embolus or acute pneumonia. 2. Prominent adenopathy throughout the mediastinum and prominence of the liver and spleen and probable para-aortic adenopathy and the margins of the study as well consistent with lymphoma as the most likely cause. Hospital Course Active issues and reason for admission 1. Hypoxemia : Due to underlying respiratory emphysema. 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 2 .- Lymphoma : CT scan of the abdomen shows intestinal lymphadenopathy and abdominal lymphadenopathy compatible with possible lymphoma. Patient declined any aggressive approach such as chemotherapy or biopsy. She stated she has lived enough to want to go peacefully if that is the case. 3 . Unilateral lower extremity edema R LE edema Ultrasounds show no DVT but Multiple enlarged lymph nodes are present, several which are atypical in appearance largest measuring roughly 2.5 cm in short axis. 4. Bradycardia/ AV block : Patient declined cardiology consult and does not want any pacemaker. She stated she preferred to let nature take its course. I spoke to her niece and POA who stated as per patient wishes no chemotherapy, no radiation, surgery, no invasive procedures 5. Hypo-kalemia/low magnesium *Potassium 10 mEq orally daily 6. Dysphagia: Continue dysphagia diet 7. Hypertension Metoprolol 25 mg twice a day. A systolic BP of 140 to 150 may be OK for her Patient discharged to [facility] in stable condition Exam Vital Signs (Last) Date Time Temp Pulse Resp B/P Pulse Ox O2 Delivery O2 Flow Rate FiO2 09/02/16 04:35 37.0 70 18 179/79 94 Nasal Cannula 2.00 Exam General: Frail cachectic female, very pleasant, sitting in chair comfortably. NAD Neck : Supple, no JVD Chest: Normal respiratory effort Lung: No crackle, no wheezing Heart : S1, S2 regular rate and rhythm. No gallop Abdomen: Bowel sound normal quadrant. Non tender, non distended Extremity: Right ankle is edematous with moderate edema. Left lower extremity : no edema, no cyanosis Neuro : Grossly non focal. Test 08/30/16 16:15 08/30/16 21:51 08/30/16 22:10 08/31/16 06:05 Neutrophils (%) (Auto) 58% (40-74) Lymphocytes (%) (Auto) 36% (14-46) Monocytes (%) (Auto) 6% (4-12) Eosinophils (%) (Auto) 0% (0-5) Basophils (%) (Auto) 0% (0-3) Hold Purple Top Tube Received (Received) Hold Blue Top Tube Received (Received) Total Bilirubin 0.4mg/dL (0.0-1.2) Aspartate Amino Transf (AST/SGOT) 17U/L (0-50) Alanine Aminotransferase (ALT/SGPT) 8U/L (0-32) Alkaline Phosphatase 77U/L (25-165) Pro-B-Type Natriuretic Peptide 1638pg/mL (0-738) Total Protein 8.2g/dL (6.4-8.4) Hold Red Top Tube Received (Received) Hold [place] Top Tube Received (Received) Urine Color Yellow (YELLOW) Urine Appearance Clear (CLEAR,HAZY) Urine pH 7.0 (5.0-8.0) Urine Specific [place] 1.015 (1.003-1.035) Urine Protein Negativemg/dL (NEG,TRACE) Urine Glucose (UA) Negativemg/dL (NEGATIVE) Urine Ketones Negativemg/dL (NEGATIVE) Urine Occult Blood Negative (NEGATIVE) Urine Nitrite Negative (NEGATIVE) Urine Bilirubin Negative (NEGATIVE) Urine Urobilinogen Normalmg/dL (NORMAL) Urine Leukocyte Esterase Negative (NEGATIVE) Urine RBC 3-10/hpf (0-2) Urine WBC 11-50/hpf (0-5) Urine Epithelial Cells Few/hpf (NONE-MOD) Urine Crystals None seen (NONE SEEN) Urine Bacteria Few/hpf (NONE-FEW) Urine Hyaline Casts None/lpf (NONE) Urine Granular Casts None seen (NONE SEEN) Urine Waxy Casts None seen (NONE SEEN) Urine Red Blood Cell Casts None seen (NONE SEEN) Urine White Blood Cell Casts None seen (NONE SEEN) Urine Mucus None seen (None Seen) Urine Trichomonas None seen (NONE SEEN) Urine Yeast None (NONE SEEN) Urinalysis Comment None Urine Culture Reflexed Indicated Calcium (Send out) 10.8mg/dL (8.7-10.3) Ionized Calcium 1.48mmol/L (1.17-1.32) Vitamin D 25-Hydroxy 52.8ng/mL (30.0-100.0) Thyroid Stimulating Hormone (TSH) 1.650uIU/mL (0.450-4.500) Free Thyroxine 1.37ng/dL (0.82-1.77) Parathyroid Hormone Interpretation Comment (.) Total Intact Parathyroid Hormone 12pg/mL (15-65) White Blood Count 3.4th/mm3 (3.8-10.1) Red Blood Count 3.76mil/mm3 (3.90-5.20) Hemoglobin 10.6g/dL (12.0-15.6) Hematocrit 33.0% (35.0-46.0) Mean Corpuscular Volume 87.8fL (81-100) Mean Corpuscular Hemoglobin 28.2pg (27.0-35.0) Mean Corpuscular Hemoglobin Concent 32.1% (32.0-37.0) Red Cell Distribution Width 15.8% (12.3-15.4) Platelet Count 175bil/L (150-400) Magnesium Level 2.3mg/dL (1.6-2.6) Troponin T < 0.010ug/L (0.0-0.011) Test 09/02/16 08:20 Sodium Level 135mEq/L (134-144) Potassium Level 3.3mEq/L (3.5-5.2) Chloride Level 95mEq/L (97-108) Carbon Dioxide Level 30mmol/L (18-29) Blood Urea Nitrogen 12mg/dL (8-27) Creatinine 0.88mg/dL (0.57-1.00) Estimat Glomerular Filtration Rate 87mL/min (>59) Glucose Level 101mg/dL (60-99) Calcium Level 10.1mg/dL (8.5-10.1) Discharge Medications Discharge Medications Amlodipine (Amlodipine) 2.5 Mg Tablet 2.5 MG PO DAILY (Reported) Furosemide (Furosemide) 20 Mg Tab 20 MG PO DAILY (Reported) Metoprolol Tartrate (Metoprolol Tartrate) 25 Mg Tablet 25 MG PO BID Prescribed by: BRAYAN HOFF MD Potassium Chloride (Potassium Chloride) 10 Meq Capsule.er 10 MEQ PO DAILY TAKE WITH FOOD Prescribed by: BRAYAN HOFF MD As needed Acetaminophen (Extra Strength Non-Aspirin) 500 Mg Tablet 500 MG PO TID PRN PRN For Pain (Reported) Tramadol (Tramadol) 50 Mg Tablet 50 MG PO QID PRN PRN For Pain (Reported) Miscellaneous Medications ([stool]) (Reported) Aspirin (Aspirin) 325 Mg Tablet 325 MG PO (Reported) Cholecalciferol (Vitamin D3) (Vitamin D3) 2,000 Unit Capsule 2,000 UNIT PO ( Reported) Followup Plan Disposition: Short-term rehabilitation Follow-up plan Follow-up with primary care doctor in 1 week Discharge Diet: Low fat, Low Sodium, Other (Dysphagia diet ) Follow-up with PCP in: 1 week (Primary Care doctor ) Time spent 35 minutes. Patient was seen and examined under the discharge Brayan Hoff MD Sep 02, 2016 12:20
[2016-09-02 13:20] VITALS: PULSE 73
--- NOTE | 2016-09-02 13:36 | NUR ---
Social Work Note: Discharge Data& Assessment: EMR reviewed. Per pt is medically ready to discharge to [facility] for rehab. Milagros Palm is a 85 year old female admitted on 09/02/2016 for hypoxia. Per pt is medically improved and ready to discharge to SNF to begin rehab. KEIRY confirmed with [facility] in admissions that they are able to accept pt this afternoon and arranged transportation for 3:30p.m. KEIRY met with pt at bedside to confirm discharge plan and assess for any unmet needs. Pt is agreeable to plan. KEIRY also spoke with pt Gabino Magaña/ ANDREAS/CELSO who was also updated and agreeable to plan. Pt and pt family deny any other needs. Pt RN updated and agreeable to plan. No other discharge needs identified. Plan: Per pt is medically ready to discharge to [facility] for rehab via cabulance at 3:30p.m. Pt and pt family deny any other needs. No other discharge needs identified. All updated and agreeable to plan. PATRICK Pacheco
[2016-09-02] MEDS ORDERED: Potassium Chloride 20 mEq SR Tablet PO ONE (14:00)
--- NOTE | 2016-09-02 15:25 | NUR ---
TIFFANY Signed PATRICK Pacheco
--- NOTE | 2016-09-02 15:51 | NUR ---
Discharge Pt dc'd to [facility] at approx 1530. Gave report to Monica Admit Nurse. IVx2 d/c'd intact. Pt left w/ all belongings and was taken to [facility] via cabulance service set up by [facility] in a w/c.
== END 2016-09-02 15:50 | DRG 842 ==
LOC: EDBD 15:46 → SED 15:46 → OBSVTOIN 18:48 → OSC 18:48
PROVIDERS: ADMIT Urology; ATTEND Urology
DX: C85.98 Non-Hodgkin lymphoma, unspecified, lymph nodes of multiple sites (principal); E61.2 Magnesium deficiency; E87.6 Hypokalemia; I10 Essential (primary) hypertension; F17.210 Nicotine dependence, cigarettes, uncomplicated; R13.10 Dysphagia, unspecified; I44.30 Unspecified atrioventricular block; R60.9 Edema, unspecified